=== PATIENT | female | born 1995 | race Caucasian/White ===

== ENCOUNTER → 2016-03-15 | Outpatient (CLI) | payer OTHER ==
[~2016-03-15] MED LIST: BETA30P2 IM; CEPH-460 PO; MACR100C2 PO; PREN1CHW7 PO; ZOFR4TAB3 SL
== END ==
LOC: HPND 13:47
PROVIDERS: ATTEND Obstetrics & Gynecology
DX: O09.32 Supervision of pregnancy with insufficient antenatal care, second trimester (principal); O99.332 Smoking (tobacco) complicating pregnancy, second trimester; Z3A.24 24 weeks gestation of pregnancy
CPT/HCPCS: 76805

== ENCOUNTER 2016-05-20 10:36 | Emergency (ER) | payer OTHER ==
[~2016-05-20 10:36] MED LIST changes: -BETA30P2 IM; -MACR100C2 PO
--- NOTE | 2016-05-20 10:46 | PD ---
HPI Chief Complaint Contractions Date Seen: May 20, 2016 Time Seen: 10:44 (Thomas Elizalde MD R1) Travel History International Travel<30 Days: No Contact w/Intl Traveler<30Days: No Known Affected Area: No (Thomas Elizalde MD) History of Present Illness HPI Patient is a 21 year old at 33/6 weeks gestation presents to OB ED with complaints of contractions beginning yesterday evening. She states they are irregular but slightly worse than yesterday. She states she is only able to tolerate drinking about 2 bottles of water per day. Reports +FM. Denies any LOF or VB. Denies urinary symptoms. She otherwise has no complaints or concerns. Para: 1 : 3 (Thomas Elizalde MD) History Past Medical History Narrative Medical Anxiety Depression Illicit drug abuse (Thomas Elizalde MD) Obstetric History Obstetric History Vaginal delivery 09/06/2013 at 37 weeks gestation; delivered a 5 pound 4 ounce female (Thomas Elizalde MD) Past Surgical History Narrative Surgical Tonsillectomy (Thomas Elizalde MD) Family History Family History: Negative (Thomas Elizalde MD) Social History Alcohol Use: No Tobacco Use: Yes (Per chart review, smoking three fourths of a pack per day) Substance Abuse: Yes (Per chart review, UDS positive for cocaine, THC, and benzodiazepines) (Thomas Elizalde MD) Allergies-Medications (Allergen,Severity, Reaction): Coded Allergies: Amoxicillin (Verified Allergy, Severe, hives, hard to breathe, 03/11/16) clindamycin, penicillin, Clindamycin (Verified Allergy, Severe, Itching, 03/11/16) Erythromycin (Verified Allergy, Severe, Rash, 03/11/16) Latex (Verified Allergy, Severe, rash, itching, 03/11/16) Tramadol (Verified Allergy, Severe, headache, itchy throat, 03/11/16) Penicillin (Unverified Allergy, Unknown, 03/11/16) Toradol (Unverified Allergy, Unknown, 03/11/16) Home Meds Active Scripts Nitrofurantoin Monohydrate Macrocrystals (Macrobid)100 Mg [id number] Mg PO BID #10 CAP Ref 0 Prov:Thomas Elizalde MD R1 05/20/16 Ondansetron Odt (Zofran Odt)4 Mg Tab4 Mg SL Q6HR PRN (Nausea/Vomiting) #30 TAB Ref 0 Prov:Breanna Tijerina CNM [facility] 03/12/16 Cephalexin (Keflex)500 Mg Ipx651 Mg PO Q12H #14 CAP Ref 0 Prov:Nereyda Serrato [facility] 03/11/16 Vit W/ Ferric Phospha (Vitafol Gummies 3.33-0.333-34.8 mg)1 Chw Chw1 Tab PO DAILY #90 BOTTLE Ref 3 Prov:Nereyda Serrato [facility] 03/11/16 Review of Systems Except as stated in HPI: all other systems reviewed are Neg (Thomas Elizalde MD R1) Physical Exam Narrative GENERAL: Well-nourished, well-developed patient. SKIN: Warm and dry. HEAD: Normocephalic and atraumatic. EYES: No scleral icterus. No injection or drainage. ENT: No nasal drainage noted. Mucous membranes pink. Airway patent. NECK: Supple, trachea midline. No JVD. CARDIOVASCULAR: Regular rate and rhythm without murmurs, gallops, or rubs. RESPIRATORY: Breath sounds equal bilaterally. No accessory muscle use. ABDOMEN/GI: Abdomen soft, non-tender, bowel sounds present, no rebound, no guarding Gravid to 34 weeks size GENITOURINARY: External Genitalia: [-] Cervix: [-] Dilatation: [-] Effacement: [-] Station: [-] Presentation: [-] Membranes: [-] Uterine Contractions: none FHT's: Category: I Baseline: 130s Reactive: yes Variability: mod Decels: none EXTREMITIES: No cyanosis or edema. BACK: Nontender without obvious deformity. No CVA tenderness. NEUROLOGICAL: Awake and alert. Motor and sensory grossly within normal limits. Normal speech. (Thomas Elizalde MD R1) Data Data Vital Signs Reviewed: Yes (Thomas Elizalde MD R1) [facility] Medical Record Reviewed: Yes Plan 21 year old at 33/6 weeks gestation presents to OB ED with complaints of contractions. 1. IUP - Category I tracing - No contractions on tocometer - Encouraged adequate oral hydration - Counseled patient on signs of early labor - Follow up at [facility] for routine care 2. H/o drug abuse - Patient currently denies - Previous urine toxicology screen from 12/12/15 positive for cocaine, THC, and benzodiazepines - Will obtain another extended urine drug screen 3. UTI - UA showing moderate leukocyte esterase, negative nitrite, moderate bacteria, indicating culture - Will treat empirically with Macrobid 100 mg po bid for [address] Conway (Thomas Elizalde MD R1) Diagnosis Diagnosis: Primary Impression: UTI (urinary tract infection) during Additional Impressions: Round ligament pain Intrauterine Disposition: DISCHARGE HOME Condition: Stable Scripts Nitrofurantoin Monohydrate Macrocrystals (Macrobid)100 Mg [id number] Mg PO BID #10 CAP Ref 0 Prov:Thomas Elizalde MD R1 05/20/16 Patient Instructions: General Instructions, Early Labor Signs (ED), Urinary Tract Infection in (ED) Addendum Remarks I rounded on the patient. I rounded with the resident. I reviewed the resident' s assessment and plan of care for this patient. I am in agreement with the plan of care for this patient. (Ivis Mims MD) Thomas Elizalde MD R1 May 20, 2016 10:46 Ivis Mims MD May 21, 2016 04:21
[2016-05-20 11:04] VITALS: BP 94/61; PULSE 92
[2016-05-20 11:05] VITALS: RESP 20; TEMP 97.9
[2016-05-20] MEDS ORDERED: ACETAMINOPHEN 325 MG TAB PO ONE (11:30)
[2016-05-20 11:49] LABS: BACTERIA, URINE MOD /hpf; BLOOD, URINE NEG (NEG); GLUCOSE,URINE NEG (NEG); HYALINE CAST, URINE 1 /lpf (RARE); KETONE, URINE NEG (NEG); MUCUS URINE FEW /lpf (OCC); NITRITE,URINE NEG (NEG); PH, URINE 6.5 (5.0-8.5); SQUAMOUS EPITHELIAL CELL URINE 6 /hpf (0-5); TRANSITIONAL EPI CELLS, URINE <1 /hpf; URINE COLOR YELLOW (YELLW/STRAW)
[2016-05-20 11:54] LABS: COMMENT (UR) CULTURE INDICATED; CULTURE IF INDICATED CULTURE INDICATED
[2016-05-20] MEDS ORDERED: MACR100C2 PO (12:05)
[2016-05-20 12:06] LABS: AMPHETAMINE, URINE NEG (NEG); BARBITURATES, URINE NEG (NEG); COCAINE, URINE NEG (NEG)
[2016-05-25 13:12] LABS: BATH SALTS (MDPV) UR NEG (NEG); ECSTASY (MDMA) UR NEG (NEG); HEROIN (6-ACETYLMORPHINE) UR NEG (NEG); K2 SPICE UR NEG (NEG); OBMETHADONE UR NEG (NEG); OXYCODONE (PERCODAN) NEG (NEG); PHENCYCLIDINE URINE NEG (NEG)
== END 2016-05-20 12:54 | disposition home or self-care (01) ==
LOC: HOBED 10:36
DX: O23.43 Unspecified infection of urinary tract in pregnancy, third trimester (principal); O26.893 Other specified pregnancy related conditions, third trimester; R10.2 Pelvic and perineal pain; F17.200 Nicotine dependence, unspecified, uncomplicated; Z86.59 Personal history of other mental and behavioral disorders; Z3A.33 33 weeks gestation of pregnancy
CPT/HCPCS: 80307; 81001; 87086; 99284; G0481

== ENCOUNTER 2016-05-27 11:42 | Observation (INO) | payer OTHER ==
[2016-05-27] VITALS (89 sets, daily range): BP systolic 88–124; BP diastolic 48–77; PULSE 81–148; RESP 16–19; TEMP 97.8–98
[~2016-05-27 11:42] MED LIST changes: +MACR100C2 PO
--- NOTE | 2016-05-27 12:25 | PD ---
HPI Chief Complaint Back pain Date Seen: May 27, 2016 (Nanci Quarles MD R1) Travel History International Travel<30 Days: No Contact w/Intl Traveler<30Days: No Known Affected Area: No (Nanci Quarles MD) History of Present Illness HPI Patient is a 21-year-old at 34/6 weeks gestation that presents to the [facility] ED with chief complaints of sharp, 9/10, intermittent back pain, bilateral groin pain, and bilateral sharp in the thigh pain that began at 3 AM this morning. The patient says she woke up with the pain and she tried 800 mg of ibuprofen which did not help. The pain is worse with coughing/sneezing, no positional change helps. Last sexual intercourse was 3 days ago. She has not had weakness in any of her lower extremities and sensation is intact. She denies loss of fluid, vaginal bleeding, and endorses positive movements. She has had nausea, heartburn, and a cough for 3-4 months. She denies fever, chills, dysuria, abnormal vaginal discharge. Patient was recently seen in the OB ED on 05/20 where she was prescribed Macrobid for a urinary tract infection. She states that she lost the prescription and did not take the medication. [facility], her last visit was in February. She has not been able to go to her scheduled visits because of multiple family issues. Para: 1 : 3 (Nanci Quarles MD) History Past Medical History Narrative Medical Anxiety Depression Illicit drug abuse (Nanci Quarles MD) Obstetric History Obstetric History Vaginal delivery 09/06/2013 at 37 weeks gestation; delivered a 5 pound 4 ounce female (Nanci Quarles MD) Past Surgical History Narrative Surgical Tonsillectomy (Nanci Quarles MD) Family History Family History: Negative (Nanci Quarles MD) Social History Alcohol Use: No Tobacco Use: Yes (3/4 of PPD) Substance Abuse: No (Nanci Quarles MD) Allergies-Medications (Allergen,Severity, Reaction): Coded Allergies: Amoxicillin (Verified Allergy, Severe, hives, hard to breathe, 03/11/16) clindamycin, penicillin, Clindamycin (Verified Allergy, Severe, Itching, 03/11/16) Erythromycin (Verified Allergy, Severe, Rash, 03/11/16) Latex (Verified Allergy, Severe, rash, itching, 03/11/16) Tramadol (Verified Allergy, Severe, headache, itchy throat, 03/11/16) Penicillin (Unverified Allergy, Unknown, 03/11/16) Toradol (Unverified Allergy, Unknown, 03/11/16) Home Meds Active Scripts Nitrofurantoin Monohydrate Macrocrystals (Macrobid)100 Mg Ope237 Mg PO BID #10 CAP Ref 0 Prov:Thomas Elizalde MD R1 05/20/16 Ondansetron Odt (Zofran Odt)4 Mg Tab4 Mg SL Q6HR PRN (Nausea/Vomiting) #30 TAB Ref 0 Prov:Breanna Tijerina CNM [facility] 03/12/16 Cephalexin (Keflex)500 Mg Shc280 Mg PO Q12H #14 CAP Ref 0 Prov:Nereyda Serrato 03/11/16 Vit W/ Ferric Phospha (Vitafol Gummies 3.33-0.333-34.8 mg)1 Chw Chw1 Tab PO DAILY #90 BOTTLE Ref 3 Prov:Nereyda Serrato 03/11/16 Review of Systems General / Constitutional: No: Fever, Chills HENT: No: Headaches Respiratory: No: Cough, Short of Breath Gastrointestinal: Nausea, No: Vomiting, Abdominal Pain Genitourinary: No: Dysuria Musculoskeletal: Pain (Back), No: Weakness Neurologic: No: Weakness (Eko,Nanci Trevon SPENCER R1) Physical Exam Narrative GENERAL: Well-nourished, well-developed patient. SKIN: Warm and dry. HEAD: Normocephalic and atraumatic. EYES: No scleral icterus. No injection or drainage. ENT: No nasal drainage noted. Mucous membranes pink. Airway patent. NECK: Supple, trachea midline. No JVD. CARDIOVASCULAR: Tachycardic rate and regular rhythm without murmurs, gallops, or rubs. RESPIRATORY: Breath sounds equal bilaterally. No accessory muscle use. ABDOMEN/GI: Abdomen soft, non-tender, bowel sounds present, no rebound, no guarding Gravid to 35 weeks size GENITOURINARY: External Genitalia: intact and normal in appearance Cervix: posterior Dilatation: 2cm Effacement: 50% Station: -3 Membranes: intact Uterine Contractions: Present, q3-4 minutes FHT's: Category: 1 Baseline: 140 Reactive:Up to 160 Variability: Moderate Decels: None EXTREMITIES: No cyanosis or edema. BACK: Nontender without obvious deformity. Left back tenderness to palpation. NEUROLOGICAL: Awake and alert. Motor and sensory grossly within normal limits. Five out of 5 muscle strength in all muscle groups. Normal speech. (Nanci Quarles MD R1) Data Data Vital Signs Reviewed: Yes Orders Vital Signs (Adult) .ON ADMISSION (05/27/16 11:54) ^ Labor Status (05/27/16 11:54) ^ Non Stress Test (05/27/16 11:54) Vital Signs (Adult) .ON ADMISSION (05/27/16 12:22) ^ Labor Status (05/27/16 12:22) Urinalysis - C+S If Indicated (05/27/16 12:22) Drug Screen, Random Urine (05/27/16 12:22) (Nanci Quarles MD R1) [facility] Medical Record Reviewed: Yes Interpretation(s) 21 at 34/6 weeks gestation presents in labor. Plan Intrauterine tracing category I - reassuring Contractions Q3-4min on tocometer Pelvic exam: 2cm, 50%, -3 Oral hydration and LR 500ml bolus then at 125ml/hr UA not indicative of UTI UDS positive for benzodiazepine and marijuana Contractions persisted after LR -Admit on observation -Start Mg -Betamethasone -US for size -GBS - labs (Nanci Quarles MD R1) Diagnosis Diagnosis: Primary Impression: labor Condition: Stable Collaborating MD Comments Patient has many risk factors for labor. Now with contractions consistently, drug abuse, limited care. Patient seen and examined. I agree with present management plan. (Rivka Warren MD) Nanci Quarles MD R1 May 27, 2016 12:25 Rivka Warren MD May 28, 2016 08:12
[2016-05-27 12:50] LABS: BACTERIA, URINE RARE /hpf; BLOOD, URINE NEG (NEG); GLUCOSE,URINE NEG (NEG); KETONE, URINE NEG (NEG); MUCUS URINE FEW /lpf (OCC); NITRITE,URINE NEG (NEG); SQUAMOUS EPITHELIAL CELL URINE 6 /hpf (0-5); URINE COLOR YELLOW (YELLW/STRAW)
[2016-05-27 12:51] LABS: COMMENT (UR) CULT NOT INDICATED; CULTURE IF INDICATED CULT NOT INDICATED
[2016-05-27 13:16] LABS: AMPHETAMINE, URINE NEG (NEG); BARBITURATES, URINE NEG (NEG); COCAINE, URINE NEG (NEG)
[2016-05-27 13:52] LABS: BASOPHIL % 0.2 % (0.0-2.0); EOSINOPHIL # 0.1 TH/MM3 (0-0.4); EOSINOPHIL % 0.5 % (0.0-4.0); HEMO FLAGS DIFF FINAL; LYMPH % 17.8 % (9.0-44.0); MEAN CELL VOLUME 80.3 FL (80.0-100.0); MEAN CORPUSCULAR HEMOGLOBIN 26.5 PG (27.0-34.0); MONO % 8.4 % (0.0-8.0); NEUT % 73.1 % (16.0-70.0); PLATELET COUNT 181 TH/MM3 (150-450); RED BLOOD COUNT 3.74 MIL/MM3 (4.00-5.30); RED CELL DISTRIBUTION WIDTH 14.8 % (11.6-17.2)
[2016-05-27] MEDS: LACTATED RINGER'S 1000 ML INJ 1,000 ML IV SCH ×2 (14:02→15:36)
[2016-05-27 14:28] LABS: RUBELLA IGG ANTIBODY 38.2 IU/mL (10.0-500.0); RUBELLA STATUS IMMUNE (IMMUNE)
[2016-05-27] MEDS ORDERED: CALCIUM CARBONATE 500 MG CHEWABLE TAB CHEW PRN (14:30)
[2016-05-27] MEDS ORDERED: CALCIUM GLUCONATE 10% 1 GM/10 ML VIAL IV PRN (14:30)
[2016-05-27] MEDS ORDERED: ACETAMINOPHEN 325 MG TAB PO PRN (14:30)
[2016-05-27] MEDS ORDERED: SODIUM CHLORIDE 0.9% FLUSH 10 ML FLUSH IV FLUSH PRN (14:30)
[2016-05-27] MEDS ORDERED: SODIUM CHLORIDE 0.9% FLUSH 10 ML FLUSH IV FLUSH SCH (14:30)
[2016-05-27] MEDS ORDERED: MAGNESIUM SULFATE 4 GM PREMIX 100 ML IV ONE (15:00)
[2016-05-27] MEDS ORDERED: CALCIUM CARBONATE 500 MG CHEWABLE TAB CHEW ONE (15:00)
[2016-05-27] MEDS ORDERED: BETAMETHASONE SOD PHOS/ACETATE SUSP 30 MG/5 ML VIAL IM SCH (15:00)
[2016-05-27] MEDS ORDERED: VANCOMYCIN INJ 1,000 MG in SODIUM CHLOR 0.9% 250 ML INJ 250 ML IV SCH (15:00)
[2016-05-27] MEDS ORDERED: ALUMINUM/MAGNESIUM/SIMETH 30 ML CUP PO PRN (15:15)
--- NOTE | 2016-05-27 15:23 | HHI.HP ---
HPI Chief Complaint Labor Date Seen: May 27, 2016 Travel History International Travel<30 Days: No Contact w/Intl Traveler<30Days: No Known Affected Area: No History of Present Illness HPI Patient is a 21-year-old at 34/6 weeks gestation [facility] with chief complaints of sharp, 9/10, intermittent back pain, bilateral groin pain, and bilateral sharp in the thigh pain that began at 3 AM this morning. The patient says she woke up with the pain and she tried 800 mg of ibuprofen which did not help. The pain is worse with coughing/sneezing, no positional change helps. Last sexual intercourse was 3 days ago. She has not had weakness in any of her lower extremities and sensation is intact. She denies loss of fluid, vaginal bleeding, and endorses positive movements. She has had nausea, heartburn, and a cough for 3-4 months. She denies fever, chills, dysuria, abnormal vaginal discharge. Patient was recently seen in the OB ED on 05/20 where she was prescribed Macrobid for a urinary tract infection. She states that she lost the prescription and did not take the medication. She gets her care at [facility], her last visit was in February. She has not been able to go to her scheduled visits because of multiple family issues. Para: 1 : 3 History Past Medical History Narrative Medical Anxiety Depression Illicit drug abuse Obstetric History Obstetric History Vaginal delivery 09/06/2013 at 37 weeks gestation; delivered a 5 pound 4 ounce female Past Surgical History Narrative Surgical Tonsillectomy Family History Family History: Negative Social History Alcohol Use: No Tobacco Use: Yes (3/4 of PPD) Substance Abuse: No Allergies-Medications (Allergen,Severity, Reaction): Coded Allergies: Amoxicillin (Verified Allergy, Severe, hives, hard to breathe, 03/11/16) clindamycin, penicillin, Clindamycin (Verified Allergy, Severe, Itching, 03/11/16) Erythromycin (Verified Allergy, Severe, Rash, 03/11/16) Latex (Verified Allergy, Severe, rash, itching, 03/11/16) Tramadol (Verified Allergy, Severe, headache, itchy throat, 03/11/16) Penicillin (Unverified Allergy, Unknown, 03/11/16) Toradol (Unverified Allergy, Unknown, 03/11/16) Home Meds Active Scripts Nitrofurantoin Monohydrate Macrocrystals (Macrobid)100 Mg Asr692 Mg PO BID #10 CAP Ref 0 Prov:Thomas Elizalde MD R1 05/20/16 Ondansetron Odt (Zofran Odt)4 Mg Tab4 Mg SL Q6HR PRN (Nausea/Vomiting) #30 TAB Ref 0 Prov:Breanna Tijerina CNM [facility] 03/12/16 Cephalexin (Keflex)500 Mg [id number] Mg PO Q12H #14 CAP Ref 0 Prov:Nereyda Serrato [facility] 03/11/16 Vit W/ Ferric Phospha (Vitafol Gummies 3.33-0.333-34.8 mg)1 Chw Chw1 Tab PO DAILY #90 BOTTLE Ref 3 Prov:Nereyda Serrato [facility] 03/11/16 Review of Systems General / Constitutional: No: Fever, Chills Respiratory: No: Cough, Short of Breath Gastrointestinal: No: Vomiting, Abdominal Pain Genitourinary: No: Dysuria Musculoskeletal: Pain (back), No: Weakness Neurologic: No: Weakness Physical Exam Vital Signs Date Time Temp Pulse Resp B/P Pulse Ox O2 Delivery O2 Flow Rate FiO2 05/27/16 14:11 17 05/27/16 14:00 95 88/56 Narrative GENERAL: Well-nourished, well-developed patient. SKIN: Warm and dry. HEAD: Normocephalic and atraumatic. EYES: No scleral icterus. No injection or drainage. ENT: No nasal drainage noted. Mucous membranes pink. Airway patent. NECK: Supple, trachea midline. No JVD. CARDIOVASCULAR: Tachycardic rate and regular rhythm without murmurs, gallops, or rubs. RESPIRATORY: Breath sounds equal bilaterally. No accessory muscle use. BREASTS: Bilateral exam showed no masses , no retractions, no nipple discharge. ABDOMEN/GI: Abdomen soft, non-tender, bowel sounds present, no rebound, no guarding Gravid to 35 weeks size Fundal Height: 35cm GENITOURINARY: External Genitalia: intact and normal in appearance Cervix: posterior Dilatation: 2cm Effacement: 50% Station: -3 Presentation: cephalic Membranes: intact Uterine Contractions: Present, q3-4 minutes FHT's: Category: 1 Baseline: 140 Reactive:Up to 160 Variability: Moderate Decels: None EXTREMITIES: No cyanosis or edema. BACK: Nontender without obvious deformity. Left back tenderness to palpation. NEUROLOGICAL: Awake and alert. Motor and sensory grossly within normal limits. Five out of 5 muscle strength in all muscle groups. Normal speech. Data Data Vital Signs Reviewed: Yes Orders Vital Signs (Adult) .ON ADMISSION (05/27/16 11:54) ^ Labor Status (05/27/16 11:54) ^ Non Stress Test (05/27/16 11:54) Vital Signs (Adult) .ON ADMISSION (05/27/16 12:22) ^ Labor Status (05/27/16 12:22) Urinalysis - C+S If Indicated (05/27/16 12:22) Drug Screen, Random Urine (05/27/16 12:22) Lactated Ringer's 1000 Ml Inj (Lr 1000 M (05/27/16 13:00) Rubella Immune Status (05/27/16 12:47) Hepatitis Profile (05/27/16 12:47) Rapid Plasma Regin (Rpr) W Ttr (05/27/16 12:47) Type And Screen (05/27/16 12:47) Complete Blood Count With Diff (05/27/16 12:47) Place In Observation (05/27/16 ) Code Status (05/27/16 14:23) Vital Signs (Adult) Q4H (05/27/16 14:23) Activity Bed Rest (05/27/16 14:23) Intake + Output KATIE.QSHIFT (05/27/16 14:23) Heart CONTINUOUS (05/27/16 14:23) Diet Regular Basic (05/27/16 Dinner) Sodium Chloride 0.9% Flush (Ns Flush) (05/27/16 14:30) Sodium Chloride 0.9% Flush (Ns Flush) (05/27/16 14:30) Magnesium Sulfate 40 Gm Premix (Magnesiu (05/27/16 15:00) Betamethasone Inj (Celestone Soluspan In (05/27/16 15:00) Calcium Gluconate Inj (Calcium Gluconate (05/27/16 14:30) Acetaminophen (Tylenol) (05/27/16 14:30) Ondansetron Inj (Zofran Inj) (05/27/16 14:30) Magnesium Sulfate 4 Gm Premix (Magnesium (05/27/16 15:00) Calcium Carbonate Chew (Tums Chew) (05/27/16 15:00) Calcium Carbonate Chew (Tums Chew) (05/27/16 14:30) Vancomycin Inj (Vancomycin Inj) (05/27/16 15:00) Group B Strep Pcr (Rapid) (05/27/16 14:32) Ob (2e) Additional Admit Info (05/27/16 14:35) Special Serology (05/27/16 14:35) Us Ob Repeat/Fu(Growth) (05/27/16 ) Urinary Catheter Management KATIE.Q8H (05/27/16 15:10) Al-Mag Hy-Si 40-40-4 Mg/Ml Liq (Mag-Al P (05/27/16 15:15) Labs Laboratory Tests Test 05/27/16 05/27/16 12:20 13:25 Urine Color YELLOW Urine Turbidity CLOUDY Urine pH 7.0 Urine Specific [place] 1.019 Urine Protein TRACE Urine Glucose (UA) NEG Urine Ketones NEG Urine Occult Blood NEG Urine Nitrite NEG Urine Bilirubin NEG Urine Urobilinogen 2.0 Urine Leukocyte Esterase TRACE Urine RBC 2 Urine WBC LESS THAN 1 Urine Squamous Epithelial 6 Cells Urine Amorphous Sediment MOD Urine Bacteria RARE Urine Mucus FEW Microscopic Urinalysis Comment CULT NOT INDICATED Urine Opiates Screen NEG Urine Barbiturates Screen NEG Urine Amphetamines Screen NEG Urine Benzodiazepines Screen POS Urine Cocaine Screen NEG Urine Cannabinoids Screen POS White Blood Count 11.0 Red Blood Count 3.74 Hemoglobin 9.9 Hematocrit 30.0 Mean Corpuscular Volume 80.3 Mean Corpuscular Hemoglobin 26.5 Mean Corpuscular Hemoglobin 33.0 Concent Red Cell Distribution Width 14.8 Platelet Count 181 Mean Platelet Volume 9.4 Neutrophils (%) (Auto) 73.1 Lymphocytes (%) (Auto) 17.8 Monocytes (%) (Auto) 8.4 Eosinophils (%) (Auto) 0.5 Basophils (%) (Auto) 0.2 Neutrophils # (Auto) 8.0 Lymphocytes # (Auto) 2.0 Monocytes # (Auto) 0.9 Eosinophils # (Auto) 0.1 Basophils # (Auto) 0.0 CBC Comment DIFF FINAL Differential Comment Rubella Immunity Screen IMMUNE Rubella Antibody, Quantitative 38.2 Blood Type A POSITIVE Antibody Screen NEGATIVE Assessment/Plan Assessment and Plan 21 at 34/6 weeks gestation presents in labor. Intrauterine tracing category I - reassuring Contractions Q3-4min on tocometer Pelvic exam: 2cm, 50%, -3 Oral hydration and LR 500ml bolus then at 125ml/hr UA not indicative of UTI UDS positive for benzodiazepine and marijuana Contractions persisted after fluids -Admit on observation -Start Mg -Betamethasone -US for size -GBS - labs Discharge Planning Pending labor progress Eko,Nanci Lester MD R1 May 27, 2016 15:23
[2016-05-27] MEDS: ONDANSETRON HCL 4 MG/2 ML VIAL IV PRN (15:31)
[2016-05-27] MEDS: MAGNESIUM SULFATE 40 GM PREMIX 1,000 ML IV SCH (15:38)
[2016-05-27] MEDS ORDERED: PANTOPRAZOLE SODIUM 40 MG VIAL IV PUSH SCH (16:00)
[2016-05-27] MEDS ORDERED: BUTORPHANOL TARTRATE INJ 1 MG/ML VIAL IM PRN (16:30)
[2016-05-27] MEDS ORDERED: FAMOTIDINE 20 MG TAB PO SCH (17:00)
[2016-05-27] MEDS ORDERED: hydrOXYzine HCL 25 MG TAB PO ONE (17:15)
[2016-05-27] MEDS ORDERED: NICOTINE 14 MG/24 HR PATCH T-DERMAL SCH (17:30)
[2016-05-27] MEDS ORDERED: diphenhydrAMINE HCL 50 MG/ML VIAL ONE (17:37)
[2016-05-27] MEDS ORDERED: BUTORPHANOL TARTRATE INJ 1 MG/ML VIAL IV PUSH PRN (18:15)
[2016-05-27] MEDS ORDERED: LIDOCAINE 2% JELLY 30 ML TUBE ONE (20:19)
[2016-05-27] MEDS ORDERED: LIDOCAINE 2% JELLY 30 ML TUBE TOPICAL PRN (20:30)
[2016-05-27] MEDS ORDERED: LORazepam 2 MG/ML VIAL IV ONE (21:00)
[2016-05-28] VITALS (145 sets, daily range): BP systolic 86–110; BP diastolic 39–65; PULSE 83–112; RESP 18; TEMP 97.6–97.8
[2016-05-28] MEDS: LACTATED RINGER'S 1000 ML INJ 1,000 ML IV SCH (01:19)
[2016-05-28] MEDS ORDERED: diphenhydrAMINE HCL 50 MG CAP PO PRN (02:00)
[2016-05-28] MEDS ORDERED: FAMOTIDINE 20 MG TAB PO SCH (03:00)
[2016-05-28] MEDS: ONDANSETRON HCL 4 MG/2 ML VIAL IV PRN (07:33)
--- NOTE | 2016-05-28 08:34 | PD.OB.ANTE ---
Subjective Diagnosis: (1) labor Diagnosis: Principal Interval History Ms. Charlton was afebrile with stable vital signs overnight. Patient denies complaints this morning, stating that her prior itching has resolved. Patient reports continued back pain. No reported dysuria. No fever or chills. No shortness of breath. Per discussion with Dr. Warren and EMR, patient had episode of significant agitation / aggression yesterday evening towards medical team due to reluctance to use catheter; catheter removed and Ativan ordered x1 for agitation. (Sky Balderas MD R2) Objective Vital Signs Vital Signs Date Time Temp Pulse Resp B/P Pulse Ox O2 Delivery O2 Flow Rate FiO2 05/28/16 08:15 96 05/28/16 08:15 98 05/28/16 08:10 97 05/28/16 08:10 95 05/28/16 08:05 96 05/28/16 08:05 98 05/28/16 08:00 102 05/28/16 08:00 103 110/65 05/28/16 08:00 107 05/28/16 07:55 98 05/28/16 07:55 98 05/28/16 07:50 99 05/28/16 07:50 99 05/28/16 07:45 103 05/28/16 07:45 101 05/28/16 07:41 18 05/28/16 07:40 98 05/28/16 07:40 99 05/28/16 07:35 97 05/28/16 07:30 97 05/28/16 07:25 95 05/28/16 07:20 100 05/28/16 07:15 95 05/28/16 07:10 96 05/28/16 07:05 96 05/28/16 07:00 92 98/47 05/28/16 07:00 97.6 05/28/16 07:00 92 05/28/16 06:55 95 05/28/16 06:50 98 05/28/16 06:45 97 05/28/16 06:40 96 05/28/16 06:35 91 05/28/16 06:30 97 05/28/16 06:28 18 05/28/16 06:25 97 05/28/16 06:20 95 05/28/16 06:15 97 05/28/16 06:10 98 05/28/16 06:05 95 05/28/16 06:00 93 18 05/28/16 06:00 89 101/50 05/28/16 05:55 90 05/28/16 05:50 92 05/28/16 05:45 97 05/28/16 05:40 99 05/28/16 05:35 97 05/28/16 05:30 97 05/28/16 05:25 96 05/28/16 05:20 95 05/28/16 05:15 97 05/28/16 05:10 97 05/28/16 05:05 99 05/28/16 05:00 101 93/39 05/28/16 05:00 99 05/28/16 04:59 18 05/28/16 04:55 97 05/28/16 04:50 95 05/28/16 04:45 98 05/28/16 04:40 97 05/28/16 04:35 94 05/28/16 04:30 93 05/28/16 04:20 90 05/28/16 04:15 98 05/28/16 04:10 94 05/28/16 04:05 94 05/28/16 04:00 93 05/28/16 04:00 90 99/46 05/28/16 03:55 89 05/28/16 03:50 90 05/28/16 03:45 93 05/28/16 03:40 93 05/28/16 03:35 99 05/28/16 03:31 94 91/44 05/28/16 03:30 96 05/28/16 03:25 96 05/28/16 03:20 93 05/28/16 03:15 90 05/28/16 03:11 18 05/28/16 03:10 90 86/44 05/28/16 03:05 90 05/28/16 03:00 89 88/43 05/28/16 03:00 90 05/28/16 03:00 18 05/28/16 02:55 92 05/28/16 02:50 89 05/28/16 02:45 83 05/28/16 02:35 90 05/28/16 02:30 89 05/28/16 02:25 89 05/28/16 02:20 88 05/28/16 02:15 91 05/28/16 02:10 93 05/28/16 02:05 91 05/28/16 02:00 94 103/58 05/28/16 02:00 97.8 05/28/16 02:00 92 05/28/16 01:55 98 05/28/16 01:50 95 05/28/16 01:46 18 05/28/16 01:45 93 05/28/16 01:40 96 05/28/16 01:35 93 05/28/16 01:30 96 05/28/16 01:25 95 05/28/16 01:20 94 05/28/16 01:15 91 05/28/16 01:10 94 05/28/16 01:05 92 05/28/16 01:00 98 05/28/16 01:00 18 05/28/16 01:00 96 97/56 05/28/16 00:55 97 05/28/16 00:50 96 05/28/16 00:45 97 05/28/16 00:40 96 05/28/16 00:35 96 05/28/16 00:30 98 05/28/16 00:25 96 05/28/16 00:20 96 05/28/16 00:15 97 05/28/16 00:10 97 05/28/16 00:05 93 05/28/16 00:00 92 05/28/16 00:00 18 05/28/16 00:00 94 94/49 05/27/16 23:55 97 05/27/16 23:50 96 05/27/16 23:45 100 05/27/16 23:40 98 05/27/16 23:35 98 05/27/16 23:30 97 05/27/16 23:25 99 05/27/16 23:20 100 05/27/16 23:15 99 05/27/16 23:10 95 05/27/16 23:00 100 95/48 05/27/16 23:00 99 05/27/16 23:00 18 05/27/16 22:55 102 05/27/16 22:50 101 05/27/16 22:45 101 05/27/16 22:40 102 05/27/16 22:35 101 05/27/16 22:30 100 05/27/16 22:30 98.0 05/27/16 22:25 104 05/27/16 22:20 97 05/27/16 22:15 94 05/27/16 22:10 99 05/27/16 22:05 109 05/27/16 22:00 106 05/27/16 22:00 107 18 107/67 05/27/16 21:55 96 05/27/16 21:55 101 109/69 05/27/16 21:50 108 05/27/16 21:45 109 05/27/16 21:40 107 05/27/16 21:35 106 05/27/16 21:25 111 05/27/16 21:20 109 05/27/16 21:15 112 05/27/16 21:10 112 05/27/16 21:05 101 05/27/16 21:00 18 05/27/16 21:00 110 05/27/16 20:55 107 05/27/16 20:50 88 100/58 05/27/16 20:50 103 05/27/16 20:35 106 05/27/16 20:00 18 05/27/16 19:45 101 05/27/16 19:40 103 05/27/16 19:35 98 05/27/16 19:30 100 05/27/16 19:25 97 05/27/16 19:20 96 05/27/16 19:15 94 05/27/16 19:10 99 05/27/16 19:05 98 05/27/16 19:00 97.8 05/27/16 19:00 103 05/27/16 18:55 98 05/27/16 18:50 104 05/27/16 18:45 148 05/27/16 18:40 104 05/27/16 18:35 92 05/27/16 18:30 84 05/27/16 18:28 93 16 97/54 05/27/16 18:25 87 05/27/16 18:20 87 05/27/16 18:15 89 05/27/16 18:05 95 05/27/16 18:00 98 05/27/16 17:55 93 05/27/16 17:50 98 05/27/16 17:45 94 05/27/16 17:40 108 05/27/16 17:35 94 05/27/16 17:25 102 05/27/16 17:20 105 05/27/16 17:15 96 05/27/16 17:10 95 05/27/16 17:05 88 05/27/16 17:00 103 110/62 05/27/16 17:00 98 05/27/16 16:26 95 119/69 05/27/16 16:25 87 05/27/16 16:20 87 05/27/16 16:20 90 118/59 05/27/16 16:15 92 05/27/16 16:15 95 114/76 05/27/16 16:15 19 05/27/16 16:10 97 100/71 05/27/16 16:10 106 05/27/16 16:05 100 05/27/16 16:05 109 124/77 05/27/16 16:01 100 111/73 05/27/16 16:00 18 05/27/16 16:00 84 05/27/16 15:55 81 05/27/16 15:55 98 106/56 05/27/16 15:50 91 05/27/16 15:50 95 108/62 05/27/16 15:48 101 105/60 05/27/16 15:45 17 05/27/16 15:45 103 05/27/16 15:40 93 05/27/16 15:39 91 110/64 05/27/16 15:35 96 05/27/16 15:30 94 05/27/16 14:11 17 05/27/16 14:00 95 88/56 Lab & Micro Results Test 05/27/16 05/27/16 05/27/16 12:20 13:25 16:20 Urine Color YELLOW Urine Turbidity CLOUDY Urine pH 7.0 Urine Specific [place] 1.019 Urine Protein TRACE mg/dL Urine Glucose (UA) NEG mg/dL Urine Ketones NEG mg/dL Urine Occult Blood NEG Urine Nitrite NEG Urine Bilirubin NEG Urine Urobilinogen 2.0 MG/DL Urine Leukocyte Esterase TRACE Urine RBC 2 /hpf Urine WBC LESS THAN 1 /hpf Urine Squamous Epithelial 6 /hpf Cells Urine Amorphous Sediment MOD Urine Bacteria RARE /hpf Urine Mucus FEW /lpf Microscopic Urinalysis Comment CULT NOT INDICATED Urine Opiates Screen NEG Urine Barbiturates Screen NEG Urine Amphetamines Screen NEG Urine Benzodiazepines Screen POS Urine Cocaine Screen NEG Urine Cannabinoids Screen POS White Blood Count 11.0 TH/MM3 Red Blood Count 3.74 MIL/MM3 Hemoglobin 9.9 GM/DL Hematocrit 30.0 % Mean Corpuscular Volume 80.3 FL Mean Corpuscular Hemoglobin 26.5 PG Mean Corpuscular Hemoglobin 33.0 % Concent Red Cell Distribution Width 14.8 % Platelet Count 181 TH/MM3 Mean Platelet Volume 9.4 FL Neutrophils (%) (Auto) 73.1 % Lymphocytes (%) (Auto) 17.8 % Monocytes (%) (Auto) 8.4 % Eosinophils (%) (Auto) 0.5 % Basophils (%) (Auto) 0.2 % Neutrophils # (Auto) 8.0 TH/MM3 Lymphocytes # (Auto) 2.0 TH/MM3 Monocytes # (Auto) 0.9 TH/MM3 Eosinophils # (Auto) 0.1 TH/MM3 Basophils # (Auto) 0.0 TH/MM3 CBC Comment DIFF FINAL Differential Comment Rubella Immunity Screen IMMUNE Rubella Antibody, Quantitative 38.2 IU/mL Blood Type A POSITIVE Antibody Screen NEGATIVE Group B Streptococcus (PCR) NEGATIVE Date/Time Procedure Status Source Growth 05/27/16 16:20 Group B Streptococcus Screen Received Genital Genital Region Pending Physical Exam GENERAL: Well-nourished, well-developed patient. SKIN: Warm and dry. EYES: No scleral icterus. No injection or drainage. EOM grossly intact CARDIOVASCULAR: Normal rate and rhythm without murmurs, grossly normal perfusion RESPIRATORY: CTAB, normal rate ABDOMEN/GI: Abdomen soft, non-tender, bowel sounds present. Gravid EXTREMITIES: No cyanosis or edema. BACK: Nontender without obvious deformity. Left back tenderness to palpation. NEUROLOGICAL: Awake and alert. Motor and sensory function grossly within normal limits. GENITOURINARY: External Genitalia: intact and normal in appearance Cervix: posterior Dilatation: 1-2cm Effacement: 50% Station: -3 Presentation: cephalic Membranes: intact Uterine Contractions: intermittent/irregular, irritability FHT's: Category: 1 Baseline: 120 Reactive: Y Variability: Moderate Decels: None (Sky Balderas MD R2) Assessment and Plan Problem List: (1) labor Status: Acute Assessment and Plan 22 at 34/6 weeks gestation - labs obtained status - tracing category I - reassuring Concern for labor Impression: Contractions have spaced s/p MgSO4 / IVF and are now irregular. On admission, pelvic exam: 2cm, 50%, -3 US 05/27: Awaiting US read. GA adjusted to ~34 2/7 days -S/P Betamethasone 12mg x1 (1537 05/27) -Will give second dose today -MgSO4 stopped -Continue EFM and monitoring for contractions -GBS status pending -Continue Vancomycin for PPX (patient w/ severe PCN allergy and is also allergic to Clindamycin) Substance abuse Impression: UDS positive for benzodiazepine and marijuana Back Pain Impression: Possibly secondary to contractions. Suspect low pain threshold w/ history of substance abuse -Cont Tylenol -Will give Flexeril 5mg x1 (Sky Balderas MD R2) Collaborating MD Comments Patient seen and care discussed with resident. Will discontinue magnesium and watch contraction pattern. (Rivka Warren MD) Sky Balderas MD R2 May 28, 2016 08:34 Rivka Warren MD Jun 01, 2016 10:48
[2016-05-28] MEDS ORDERED: REMOVE OLD PATCH T-DERMAL SCH (09:00)
[2016-05-28] MEDS ORDERED: CYCLOBENZAPRINE HCL 10 MG TAB PO ONE (09:30)
[2016-05-28 10:15] LABS: AUTOMATED NEUTROPHIL # 13.6 TH/MM3 (1.8-7.7); BASOPHIL % 0.2 % (0.0-2.0); HEMATOCRIT 31.7 % (35.0-46.0); HEMO FLAGS DIFF FINAL; LYMPH % 9.7 % (9.0-44.0); LYMPHOCYTE # 1.5 TH/MM3 (1.0-4.8); MEAN CELL VOLUME 81.2 FL (80.0-100.0); MEAN CORPUSCULAR HEMOGLOBIN 26.6 PG (27.0-34.0); MEAN CORPUSCULAR HGB CONC 32.8 % (32.0-36.0); MONO % 3.8 % (0.0-8.0); NEUT % 86.3 % (16.0-70.0); PLATELET COUNT 222 TH/MM3 (150-450); RED CELL DISTRIBUTION WIDTH 14.8 % (11.6-17.2); WHITE BLOOD COUNT 15.7 TH/MM3 (4.0-11.0)
[2016-05-28 10:40] LABS: POTASSIUM 3.7 MEQ/L (3.5-5.1); TOTAL BILIRUBIN ADULT 0.3 MG/DL (0.2-1.0)
[2016-05-28 10:45] LABS: CALCIUM-PROTEIN CORRECTED 7.3 MG/DL (8.5-10.1)
[2016-05-28 10:48] LABS: RAPID PLASMA REAGIN SCREEN NON-REACTIVE (NON-REACTVE)
[2016-05-28] MEDS: MAGNESIUM SULFATE 40 GM PREMIX 1,000 ML IV SCH (11:00)
[2016-05-28] MEDS ORDERED: BETA30P2 IM (12:36)
== END 2016-05-28 12:44 | disposition home or self-care (01) ==
LOC: HOBED 11:42 → H2EA 14:40
PROVIDERS: ADMIT Obstetrics & Gynecology Obstetrics; ATTEND Obstetrics & Gynecology Obstetrics
DX: O60.03 Preterm labor without delivery, third trimester (principal); O99.333 Smoking (tobacco) complicating pregnancy, third trimester; F17.200 Nicotine dependence, unspecified, uncomplicated; O99.323 Drug use complicating pregnancy, third trimester; F12.90 Cannabis use, unspecified, uncomplicated; F19.90 Other psychoactive substance use, unspecified, uncomplicated; Z3A.34 34 weeks gestation of pregnancy; Z88.5 Allergy status to narcotic agent; Z88.0 Allergy status to penicillin; Z88.1 Allergy status to other antibiotic agents; Z91.040 Latex allergy status
CPT/HCPCS: 59025; 76816; 80053; 80074; 80307; 81001; 85025; 86592; 86703; 86762; 86850; 86900; 86901; 87081; 87150; 96360; 99285; C9113; G0378; J0595; J0702; J1200; J2060; J2405; J3370; J3475; J7050; J7120

== ENCOUNTER → 2016-05-30 | Outpatient (CLI) | payer OTHER ==
[~2016-05-30] MED LIST changes: +BETA30P2 IM; +BETAMETHASONE SOD PHOS/ACETATE SUSP 30 MG/5 ML VIAL IM ONE
== END ==
LOC: HOBG 09:06
PROVIDERS: ATTEND Obstetrics & Gynecology
DX: O60.03 Preterm labor without delivery, third trimester (principal)
CPT/HCPCS: 96372; J0702

== ENCOUNTER 2017-04-05 16:39 | Emergency (ER) | payer OTHER ==
[~2017-04-05] VITALS: Ht 157.5 cm; Wt 50.0 kg
[~2017-04-05 16:39] MED LIST changes: -BETAMETHASONE SOD PHOS/ACETATE SUSP 30 MG/5 ML VIAL IM ONE
[2017-04-05 16:40] VITALS: BP 110/75; PULSE 103; RESP 20; TEMP 98.4; O2SAT 96
--- NOTE | 2017-04-05 17:34 | PD ---
HPI Chief Complaint: GI Complaint Time Seen by Provider: 17:07 Travel History International Travel<30 days: No Contact w/Intl Traveler<30days: No Traveled to known affect area: No History of Present Illness HPI 22-year-old female here for evaluation of painful rash across her right upper back and right chest as well as dysuria, abdominal pain, and which she believes to be blood in her stool. Patient first noticed the rash 4 days ago which seems to have progressed and consist of painful vesicles that occasionally weep fluid. Pain is severe, constant, worse with palpation. Patient also notes some suprapubic/lower abdominal discomfort with urination and states that she had 2 bowel movements with red material that she believed to be blood. No rectal pain. She was diagnosed with the flu 2 weeks ago. She has had a fever of 101F at home. She also complains of nausea and vomiting for the last 2 days stating that she is unable to keep anything down. No history of abdominal surgeries. PFSH Past Medical History Cardiovascular Problems: Yes (HEART MURMUR) Diminished Hearing: No Genitourinary: Yes (OVARIAN CYST) Tetanus Vaccination: < 5 Years Influenza Vaccination: No ?: Not : 2 Para: 1 Miscarriage: 1 Ovarian Cysts: Yes Past Surgical History Tonsillectomy: Yes Social History Alcohol Use: Yes (SOCIALLY) Tobacco Use: Yes (1/4 of PPD) Substance Use: No Allergies-Medications (Allergen,Severity, Reaction): Coded Allergies: amoxicillin (Unverified Allergy, Severe, hives, hard to breathe, 04/05/17) clindamycin, penicillin, clindamycin (Unverified Allergy, Severe, Itching, 04/05/17) erythromycin base (Unverified Allergy, Severe, Rash, 04/05/17) latex (Unverified Allergy, Severe, rash, itching, 04/05/17) tramadol (Unverified Allergy, Severe, headache, itchy throat, 04/05/17) ketorolac (Unverified Allergy, Unknown, 04/05/17) penicillin G (Unverified Allergy, Unknown, 04/05/17) Reported Meds & Prescriptions Reported Meds & Active Scripts Active No Active Prescriptions or Reported Medications Review of Systems Except as stated in HPI: all other systems reviewed are Neg Physical Exam Narrative GENERAL: Well-developed, thin, comfortable, no apparent distress. SKIN: Right posterior chest wall wrapping around to her right anterior chest wall in the T4 dermatomal distribution there is a rash consisting of patches of vesicular lesions with mild surrounding erythema, no purulent drainage, no fluctuance or induration. This rash is consistent with shingles and does not cross the midline. HEAD: Atraumatic. Normocephalic. EYES: Pupils equal and round. No scleral icterus. No injection or drainage. ENT: Mucous membranes pink and moist. NECK: Trachea midline. No JVD. CARDIOVASCULAR: Regular rate and rhythm. RESPIRATORY: No accessory muscle use. Clear to auscultation. Breath sounds equal bilaterally. GASTROINTESTINAL: Abdomen soft, non-tender, nondistended. RECTUM: Exam performed in the presence of a female nurse. No masses, no fissures, no hemorrhoids. Heme negative brown stool. MUSCULOSKELETAL: No obvious deformities. No clubbing. No cyanosis. No edema. NEUROLOGICAL: Awake and alert. No obvious cranial nerve deficits. Motor grossly within normal limits. Normal speech. PSYCHIATRIC: Appropriate mood and affect; insight and judgment normal. Data Data Last Documented VS Vital Signs Date Time Temp Pulse Resp B/P (MAP) Pulse Ox O2 Delivery O2 Flow Rate FiO2 04/05/17 17:46 82 18 96/62 (73) 100 Room Air 04/05/17 16:40 98.4 Orders Orders Complete Blood Count With Diff (04/05/17 16:51) Comprehensive Metabolic Panel (04/05/17 16:51) Prothrombin Time / Inr (Pt) (04/05/17 16:51) Act Partial Throm Time (Ptt) (04/05/17 16:51) Urinalysis - C+S If Indicated (04/05/17 16:51) Type And Screen (04/05/17 16:51) Ed Urine Pregnancytest Poc (04/05/17 16:52) Drug Screen, Random Urine (04/05/17 17:25) Ct Abd/Pel W Iv Contrast(Rout) (04/05/17 17:32) Acyclovir (Zovirax) (04/05/17 17:45) Morphine Inj (Morphine Inj) (04/05/17 17:45) Sodium Chlor 0.9% 1000 Ml Inj (Ns 1000 M (04/05/17 17:45) Ondansetron Inj (Zofran Inj) (04/05/17 17:45) Iohexol 350 Inj (Omnipaque 350 Inj) (04/05/17 18:18) Prednisone (Deltasone) (04/05/17 18:45) Gabapentin (Neurontin) (04/05/17 18:45) Acetamin-Hydrocod 325-5 Mg ([place] 5-325 (04/05/17 18:45) Labs Laboratory Tests Test 04/05/17 16:50 04/05/17 17:10 Urine Color LIGHT-YELLOW Urine Turbidity CLEAR Urine pH 5.5 Urine Specific [place] 1.004 Urine Protein NEG mg/dL Urine Glucose (UA) NEG mg/dL Urine Ketones NEG mg/dL Urine Occult Blood NEG Urine Nitrite NEG Urine Bilirubin NEG Urine Urobilinogen LESS THAN 2.0 MG/DL Urine Leukocyte Esterase NEG Urine RBC LESS THAN 1 /hpf Urine WBC LESS THAN 1 /hpf Urine Squamous Epithelial Cells 1 /hpf Microscopic Urinalysis Comment CULT NOT INDICATED Urine Opiates Screen NEG Urine Barbiturates Screen NEG Urine Amphetamines Screen NEG Urine Benzodiazepines Screen POS Urine Cocaine Screen NEG Urine Cannabinoids Screen POS White Blood Count 3.2 TH/MM3 Red Blood Count 4.72 MIL/MM3 Hemoglobin 13.9 GM/DL Hematocrit 40.4 % Mean Corpuscular Volume 85.6 FL Mean Corpuscular Hemoglobin 29.5 PG Mean Corpuscular Hemoglobin Concent 34.5 % Red Cell Distribution Width 13.9 % Platelet Count 151 TH/MM3 Mean Platelet Volume 8.4 FL Neutrophils (%) (Auto) 45.7 % Lymphocytes (%) (Auto) 31.8 % Monocytes (%) (Auto) 19.9 % Eosinophils (%) (Auto) 1.9 % Basophils (%) (Auto) 0.7 % Neutrophils # (Auto) 1.5 TH/MM3 Lymphocytes # (Auto) 1.0 TH/MM3 Monocytes # (Auto) 0.6 TH/MM3 Eosinophils # (Auto) 0.1 TH/MM3 Basophils # (Auto) 0.0 TH/MM3 CBC Comment DIFF FINAL Differential Comment Prothrombin Time 10.7 SEC Prothromb Time International Ratio 1.1 RATIO Activated Partial Thromboplast Time 29.4 SEC Blood Urea Nitrogen 7 MG/DL Creatinine 0.60 MG/DL Random Glucose 80 MG/DL Total Protein 6.7 GM/DL Albumin 3.5 GM/DL Calcium Level 8.0 MG/DL Alkaline Phosphatase 60 U/L Aspartate Amino Transf (AST/SGOT) 16 U/L Alanine Aminotransferase (ALT/SGPT) 21 U/L Total Bilirubin 0.2 MG/DL Sodium Level 140 MEQ/L Potassium Level 3.7 MEQ/L Chloride Level 109 MEQ/L Carbon Dioxide Level 27.1 MEQ/L Anion Gap 4 MEQ/L Estimat Glomerular Filtration Rate 124 ML/MIN MDM Medical Decision Making Medical Screen Exam Complete: Yes Emergency Medical Condition: Yes Differential Diagnosis Shingles, viral illness, UTI, cystitis, colitis, appendicitis less likely Narrative Course Vital signs reviewed. CBC is remarkable for WBC 3.2, monocytes 19.9. This is likely secondary to the viral infection from shingles. CMP is unremarkable. UA is not suggestive of UTI. Urine is negative. Urine drug screen is positive for cannabinoids and benzodiazepines. CT abdomen pelvis: CONCLUSION: 1. Mild periportal edema the liver is nonspecific but can indicate hepatitis. There is trace free fluid predominantly in Cook's pouch and also trace fluid in the pelvis. Corpus luteum cyst right ovary. Drug abuse or use stating that she is afraid of needles. She did receive a liter of normal saline IV which likely caused the mild periportal edema seen on CT scan. She does have shingles and will be started on acyclovir, prednisone, and gabapentin. I will also give her a prescription for Lortab for severe pain. There are no peritoneal signs on her exam and she is overall very comfortable. She is stable for discharge home with outpatient follow-up with a primary care physician this week. She was made aware of all findings including slight leukopenia. She was advised on when to return to the emergency department. She verbalizes understanding and agreement with plan. Diagnosis Primary Impression: Shingles Qualified Codes: B02.9 - Zoster without complications Additional Impressions: Leukopenia Qualified Codes: D72.819 - Decreased white blood cell count, unspecified Ovarian cyst Qualified Codes: N83.201 - Unspecified ovarian cyst, right side Referrals: Primary Care Physician 3 days Additional Instructions: Follow-up with a primary care physician this week. Return to the emergency department for worsening symptoms or any other concerns. Scripts Hydrocodone-Acetaminophen (Hydrocodone-Acetaminophen) 5-325 mg Tab 1 TAB PO Q6H Y for PAIN for 5 Days, #20 TAB 0 Refills Prov: Bruce Brown MD 04/05/17 Gabapentin (Gabapentin) 100 Mg Cap 100 MG PO TID for 10 Days, #90 CAP 0 Refills Prov: Bruce Brown MD 04/05/17 Prednisone (Prednisone) 50 Mg Tab 50 MG PO DAILY for 5 Days, #5 TAB 0 Refills Prov: Bruce Brown MD 04/05/17 Acyclovir (Acyclovir) 800 Mg Tab 800 MG PO 5 TIMES A DAY for Mgmt Viral Infection for 5 Days, TAB 0 Refills Prov: Bruce Brown MD 04/05/17 Disposition: 01 DISCHARGE HOME Condition: Stable Bruce Brown MD Apr 05, 2017 17:34
[2017-04-05 17:45] LABS: AUTOMATED NEUTROPHIL # 1.5 TH/MM3 (1.8-7.7); BASOPHIL % 0.7 % (0.0-2.0); EOSINOPHIL # 0.1 TH/MM3 (0-0.4); EOSINOPHIL % 1.9 % (0.0-4.0); HEMATOCRIT 40.4 % (35.0-46.0); HEMOGLOBIN 13.9 GM/DL (11.6-15.3); LYMPH % 31.8 % (9.0-44.0); MEAN CELL VOLUME 85.6 FL (80.0-100.0); MEAN CORPUSCULAR HEMOGLOBIN 29.5 PG (27.0-34.0); MEAN CORPUSCULAR HGB CONC 34.5 % (32.0-36.0); MEAN PLATELET VOLUME 8.4 FL (7.0-11.0); MONO % 19.9 % (0.0-8.0); MONOCYTE # 0.6 TH/MM3 (0-0.9); NEUT % 45.7 % (16.0-70.0); PLATELET COUNT 151 TH/MM3 (150-450); RED BLOOD COUNT 4.72 MIL/MM3 (4.00-5.30); RED CELL DISTRIBUTION WIDTH 13.9 % (11.6-17.2); WHITE BLOOD COUNT 3.2 TH/MM3 (4.0-11.0)
[2017-04-05] MEDS ORDERED: ACYCLOVIR 800 MG TAB PO ONE (17:45)
[2017-04-05] MEDS ORDERED: SODIUM CHLOR 0.9% 1000 ML INJ 1,000 ML IV ONE (17:45)
[2017-04-05] MEDS ORDERED: ONDANSETRON HCL 4 MG/2 ML VIAL IV PUSH ONE (17:45)
[2017-04-05] MEDS ORDERED: MORPHINE SULFATE 2 MG/ML INJ IV PUSH ONE (17:45)
[2017-04-05 17:46] VITALS: BP 96/62; PULSE 82; RESP 18; O2SAT 100
[2017-04-05 17:56] LABS: INTERNATIONAL NORMALIZED RATIO 1.1 RATIO; PROTHROMBIN TIME - PATIENT 10.7 SEC (9.8-11.6)
[2017-04-05 18:04] LABS: BILIRUBIN, URINE NEG (NEG); BLOOD, URINE NEG (NEG); GLUCOSE,URINE NEG (NEG); KETONE, URINE NEG (NEG); NITRITE,URINE NEG (NEG); PH, URINE 5.5 (5.0-8.5); SQUAMOUS EPITHELIAL CELL URINE 1 /hpf (0-5); URINE COLOR LIGHT-YELLOW (YELLW/STRAW); URINE LEUKOCYTE ESTERASE NEG (NEG)
[2017-04-05 18:07] LABS: ALBUMIN 3.5 GM/DL (3.4-5.0); ALT (GPT) 21 U/L (10-53); AST (GOT) 16 U/L (15-37); BICARBONATE 27.1 MEQ/L (21.0-32.0); BLOOD UREA NITROGEN 7 MG/DL (7-18); CHLORIDE 109 MEQ/L (98-107); GLOMERULAR FILTRATION RATE 124 ML/MIN (>89); GLUCOSE,RANDOM 80 MG/DL (74-106); SODIUM (NA) 140 MEQ/L (136-145)
[2017-04-05 18:09] LABS: ALKALINE PHOSPHATASE 60 U/L (45-117); TOTAL BILIRUBIN ADULT 0.2 MG/DL (0.2-1.0); TOTAL PROTEIN 6.7 GM/DL (6.4-8.2)
[2017-04-05] MEDS ORDERED: IOHEXOL 350 MG/ML 10 ML VIAL (for RAD DIAG) IVCONTRAST ONE (18:18)
--- NOTE | 2017-04-05 18:29 | RADRPT ---
EXAM DATE/TIME: 04/05/2017 18:16 [facility] COMPARISON: No previous studies available for comparison. INDICATIONS : Abdomen pain. IV CONTRAST: 75 cc Omnipaque 350 (iohexol) IV ORAL CONTRAST: No oral contrast ingested. RADIATION DOSE: 3.2 CTDIvol (mGy) MEDICAL HISTORY : Cardiovascular disease. Ovarian cyst. SURGICAL HISTORY : None. ENCOUNTER: Initial ACUITY: 1 day PAIN SCALE: 5/10 LOCATION: Bilateral abdomen TECHNIQUE: Volumetric scanning of the abdomen and pelvis was performed. Using automated exposure control and ad justment of the mA and/or kV according to patient size, radiation dose was kept as low as reasonably achievable to obtain optimal diagnostic quality images. DICOM format image data is available electro nically for review and comparison. FINDINGS: Lung bases are clear. There are no no acute findings in spleen, adrenals, kidneys or pancreas. No denny cified gallstones. There is some mild periportal edema in the liver. Trace free fluid in Cook's p ouch. No bowel obstruction. No free air. Within the pelvis there is a probable corpus luteum cyst in the ri ght ovary. There is some mild enhancement in the endometrium. CONCLUSION: 1. Mild periportal edema the liver is nonspecific but can indicate hepatitis. There is trace free flu id predominantly in Cook's pouch and also trace fluid in the pelvis. Corpus luteum cyst right ova ry. Geovany Oswald MD on April 05, 2017 at 18:21 Board Certified Radiologist. This report was verified electronically.
[2017-04-05] MEDS ORDERED: ACETAMINOPHEN/HYDROcodone 325 MG/5 MG TAB PO ONE (18:45)
[2017-04-05] MEDS ORDERED: GABAPENTIN 300 MG CAP PO ONE (18:45)
[2017-04-05] MEDS ORDERED: predniSONE 50 MG TAB PO ONE (18:45)
[2017-04-05] MEDS ORDERED: PRED50 PO (18:48)
[2017-04-05] MEDS ORDERED: ACYC800T PO (18:48)
[2017-04-05] MEDS ORDERED: GABA100C4 PO (18:48)
[2017-04-05] MEDS ORDERED: HYDR-3516 PO (18:48)
[2017-04-05 19:05] VITALS: BP 103/72; PULSE 80; RESP 16; O2SAT 100
== END 2017-04-05 19:06 | disposition home or self-care (01) ==
LOC: NEPD 16:39
DX: B02.9 Zoster without complications (principal); D72.819 Decreased white blood cell count, unspecified; N83.201 Unspecified ovarian cyst, right side; F17.210 Nicotine dependence, cigarettes, uncomplicated; Z88.1 Allergy status to other antibiotic agents; Z88.0 Allergy status to penicillin; Z88.8 Allergy status to other drugs, medicaments and biological substances; Z91.040 Latex allergy status
CPT/HCPCS: 74177; 80053; 80307; 81001; 84703; 85025; 85610; 85730; 86850; 86900; 86901; 96361; 96374; 96375; 99285; J2270; J2405; J7030; J7512; Q9967